=== PATIENT | female | born 1985 | race Two or more races ===

== ENCOUNTER 2023-12-29 16:31 | Emergency (ER) | payer MEDICAID, SELFPAY ==
--- NOTE | 2023-12-29 17:00 | PC.NURSE ---
no answer in lobby when called for vital signs
--- NOTE | 2023-12-29 17:29 | PC.NURSE ---
NA X1 @[id number]
--- NOTE | 2023-12-29 18:28 | PC.NURSE ---
no answer in lobby when called for vitals
== END 2023-12-29 18:28 | disposition left against medical advice (07) ==
LOC: SERX 18:39
PROVIDERS: Emergency Provider Emergency Medicine
DX: Z53.21 Procedure and treatment not carried out due to patient leaving prior to being seen by health care provider (principal)

== ENCOUNTER → 2024-04-17 | Outpatient (CLI) | payer BC, SELFPAY ==
[2024-04-17 15:23] LABS: Collection Type, Urine Clean Catch
[2024-04-17 16:54] LABS: Amphetamine/Methamp Scrn,U Negative (Negative); Barbiturate Screen,Urine Negative (Negative); Benzodiazepines Screen,Urine Negative (Negative); Benzoylecgonine Screen, Ur Negative (Negative); Fentanyl Screen,Urine Negative (Negative); Opiate Screen,Urine Negative (Negative); THC Screen,Urine Negative (Negative)
[2024-04-17 17:13] LABS: Bacteria,Urine Rare; Bilirubin,Urine Negative (Negative); Blood,Urine Negative (Negative); Clarity,Urine Clear (Clear/Hazy); Color,Urine Yellow (Lt Yel-Yel); Glucose, Urine Negative (Negative); Ketones,Urine Negative (Negative); Leukocyte Esterase,Urine Negative (Negative); Nitrite,Urine Negative (Negative); PH,Urine 6.5 (5.0-7.0); Protein,Urine Trace (Neg - Trace); RBC,Urine 24 /hpf (0-3); Specific Gravity,Urine 1.026 (1.001-1.035); Squamous Epithelial Cell,Urine 3 /hpf (0-5); Urobilinogen,Urine Negative mg/dL (0.0-1.0); WBC,Urine 1 /hpf (0-5)
[2024-04-18 09:36] LABS: BVAG Candida Negative (Negative); Bacterial Vaginosis Markers Negative (Negative); Candida glabrata Negative (Negative); Candida krusei PCR Negative (Negative); Trichomonas Negative (Negative)
== END | disposition home or self-care (01) ==
LOC: SLDO 14:54
PROVIDERS: Referring Provider Physician Assistant Medical; Visit Provider Physician Assistant Medical
DX: Z34.82 Encounter for supervision of other normal pregnancy, second trimester (principal)
CPT/HCPCS: 80307; 81001; 81514; 87086

== ENCOUNTER → 2024-04-25 | Outpatient (CLI) | payer BC, SELFPAY ==
[2024-04-25 10:37] LABS: Misc Send Out* See Sep Rpt; Quantiferon-TB* See Sep Rpt
[2024-04-25 10:57] LABS: Basophils % (Auto) 0 % (0-2.5); Eosinophils # (Auto) 0.1 Thou/mm3 (0.0-0.5); Eosinophils % (Auto) 1 % (0-10); Hematocrit 33.4 % (36.0-46.0); Hemoglobin 10.6 g/dL (12.0-16.0); Immature Granulocytes % (Auto) 1 % (0-0); Lymphocytes # (Auto) 1.7 Thou/mm3 (1.0-4.8); Lymphocytes % (Auto) 22 % (10-50); Mean Corpuscular HGB Conc 31.7 g/dl (31.0-37.0); Mean Corpuscular Hemoglobin 26.8 pg (25.0-35.0); Mean Corpuscular Volume 85 fL (80-100); Monocytes # (Auto) 0.4 Thou/mm3 (0.0-0.8); Monocytes % (Auto) 5 % (0-12); Neutrophils # (Auto) 5.5 Thou/mm3 (1.8-7.7); Neutrophils % (Auto) 71 % (37-80); Nucleated Red Blood Cell % 0 /100 WBC (0); Platelet Count 289 Thou/mm3 (140-440); Red Blood Count 3.95 Miln/mm3 (4.00-5.20); White Blood Count 7.7 Thou/mm3 (3.6-11.0)
[2024-04-25 11:22] LABS: Creatinine (Component) 0.4 mg/dL (0.6-1.3); Glucose 76 mg/dL (74-106); eGFR > 60 See Note
[2024-04-25 14:43] LABS: Glucose Estimated Average 94 mg/dL (80-131); Hemoglobin A1C 4.9 % Hgb (4.8-6.0)
[2024-04-25 15:50] LABS: Syphilis Nonreactive (Nonreactive)
[2024-04-29 07:18] LABS: HIV Ag/Ab, 4th Gen NON-REACTIVE
== END | disposition home or self-care (01) ==
LOC: COPL 10:04
PROVIDERS: PCP Pediatrics; Referring Provider Physician Assistant Medical; Visit Provider Physician Assistant Medical
DX: Z34.82 Encounter for supervision of other normal pregnancy, second trimester (principal)
CPT/HCPCS: 36415; 81220; 82565; 82947; 83036; 85025; 86480; 86780; 86850; 86900; 86901; 87389

== ENCOUNTER → 2024-05-24 | Outpatient (CLI) | payer BC, SELFPAY ==
[2024-05-24 16:38] LABS: Basophils % (Auto) 0 % (0-2.5); Eosinophils # (Auto) 0.1 Thou/mm3 (0.0-0.5); Eosinophils % (Auto) 1 % (0-10); Hematocrit 31.4 % (36.0-46.0); Immature Granulocytes % (Auto) 1 % (0-0); Immature Granulocytes Auto 0.11 Thou/mm3 (0.00-0.00); Lymphocytes # (Auto) 1.8 Thou/mm3 (1.0-4.8); Lymphocytes % (Auto) 21 % (10-50); Mean Corpuscular HGB Conc 31.8 g/dl (31.0-37.0); Mean Corpuscular Hemoglobin 27.8 pg (25.0-35.0); Mean Corpuscular Volume 87 fL (80-100); Monocytes # (Auto) 0.4 Thou/mm3 (0.0-0.8); Monocytes % (Auto) 5 % (0-12); Neutrophils # (Auto) 6.1 Thou/mm3 (1.8-7.7); Neutrophils % (Auto) 71 % (37-80); Nucleated Red Blood Cell % 0 /100 WBC (0); Platelet Count 255 Thou/mm3 (140-440); RDW Standard Deviation 47.3 fL (36.4-46.3); White Blood Count 8.6 Thou/mm3 (3.6-11.0)
[2024-05-24 16:57] LABS: Ferritin 10 ng/mL (7.3-270.7); Iron 61 mcg/dL (50-170); Total Iron Binding Capacity 453 mcg/dL (250-425)
[2024-05-24 17:08] LABS: Folate > 24.00 ng/mL (>5.38); Vitamin B12 405 pg/mL (211-911)
[2024-05-24 17:13] LABS: Glucose,1 Hour PP 50gm Dose 152 mg/dL (80-140)
[2024-05-29 17:48] LABS: Hemoglobinopathy Hematocrit 31.8 % (35.0-45.0); Hemoglobinopathy Hemoglobin 10.2 g/dL (11.7-15.5); Hemoglobinopathy Hemoglobin A2 2.7 % (2.0-3.2); Hemoglobinopathy MCV 87.4 fL (80.0-100.0); Hemoglobinopathy Red Blood Cnt 3.64 Million/uL (3.80-5.10)
[2024-05-30 07:25] LABS: Hemoglobinopathy Hemoglobin A 97.3 %; Hemoglobinopathy RDW 13.7 % (11.0-15.0)
== END | disposition home or self-care (01) ==
LOC: SLDO 15:43
PROVIDERS: Referring Provider Specialist; Visit Provider Specialist
DX: Z34.82 Encounter for supervision of other normal pregnancy, second trimester (principal); D50.9 Iron deficiency anemia, unspecified
CPT/HCPCS: 36415; 82607; 82728; 82746; 82950; 83020; 83540; 83550; 85014; 85018; 85025; 85041

== ENCOUNTER → 2024-06-14 | Outpatient (CLI) | payer BC, SELFPAY | END | disposition home or self-care (01) | PROVIDERS: PCP Pediatrics; Referring Provider Pediatrics; Visit Provider Pediatrics | DX: Z01.89 Encounter for other specified special examinations (principal) ==

== ENCOUNTER 2024-06-27 09:40 | Observation (INO) | payer BC, SELFPAY ==
[2024-06-27] VITALS (36 sets, daily range): BP systolic 121; BP diastolic 81; PULSE 75–249; RESP 20–98; TEMP 36.7; O2SAT 82–99; BMI 35.3
[2024-06-27] MEDS: TERBUTALINE SULF INJ 1 MG/ML VIAL 0.25 MG SC ×2 (10:42→11:35)
[2024-06-27 10:47] LABS: FFN Specimen Descripton Other; Fetal Fibronectin Negative (Negative)
[2024-06-27 10:49] LABS: Collection Type, Urine Clean Catch
[2024-06-27] MEDS: BETAMET ACET/BETAMET NA PH (Celestone) 6 MG/ML VIAL 12 MG IM (11:28)
[2024-06-27 11:37] LABS: Bacteria,Urine 2+; Bilirubin,Urine Negative (Negative); Blood,Urine 1+ (Negative); Clarity,Urine Clear (Clear/Hazy); Color,Urine Colorless (Lt Yel-Yel); Glucose, Urine Negative (Negative); Hyaline Casts,Urine < 1 /hpf (0-1); Ketones,Urine Negative (Negative); Leukocyte Esterase,Urine Negative (Negative); Nitrite,Urine Negative (Negative); Protein,Urine Negative (Neg - Trace); RBC,Urine 2 /hpf (0-3); Specific Gravity,Urine 1.004 (1.001-1.035); Squamous Epithelial Cell,Urine 1 /hpf (0-5); Urobilinogen,Urine Negative mg/dL (0.0-1.0); WBC,Urine 1 /hpf (0-5)
[2024-06-27] MEDS: cefTRIAXone 1,000 MG, LIDOCAINE 1% 20 ML 2.1 ML IM (12:19)
== END 2024-06-27 12:50 | disposition home or self-care (01) ==
PROVIDERS: Admitting Provider Specialist; Visit Provider Specialist
DX: O47.03 False labor before 37 completed weeks of gestation, third trimester (principal); Z3A.31 31 weeks gestation of pregnancy
CPT/HCPCS: 59025; 59899; 81001; 82731; 87086; 96372; J0696; J0702; J3105; J3490

== ENCOUNTER 2024-06-28 14:57 | Outpatient (CLI) | payer BC, SELFPAY ==
[2024-06-28 15:15] VITALS: BP 112/66; PULSE 86; RESP 17; RESP 98; TEMP 36.8
[2024-06-28] MEDS: BETAMET ACET/BETAMET NA PH (Celestone) 6 MG/ML VIAL 12 MG IM (15:56)
[2024-06-28 17:09] VITALS: BMI 33.6
== END 2024-06-28 16:15 | disposition home or self-care (01) ==
LOC: CNST 14:58 → S4SX 15:03
PROVIDERS: Referring Provider Obstetrics & Gynecology; Visit Provider Obstetrics & Gynecology
DX: Z34.90 Encounter for supervision of normal pregnancy, unspecified, unspecified trimester (principal); Z36.89 Encounter for other specified antenatal screening; Z3A.00 Weeks of gestation of pregnancy not specified
CPT/HCPCS: 59025; 96372; J0702

== ENCOUNTER 2024-07-18 09:12 | Observation (INO) | payer BC, SELFPAY ==
[2024-07-18] VITALS (23 sets, daily range): BP systolic 108; BP diastolic 71–77; PULSE 78–116; RESP 16–99; TEMP 36.4; O2SAT 96–99; BMI 33.7
[2024-07-18] MEDS: RINGERS LACTATED 1000 ML 1,000 ML 999 ML IV (09:45)
[2024-07-18 12:22] LABS: Collection Type, Urine Clean Catch
[2024-07-18] MEDS: TERBUTALINE SULF INJ 1 MG/ML VIAL 0.25 MG SC ×2 (12:45→13:10)
[2024-07-18 12:46] LABS: Bacteria,Urine Rare; Bilirubin,Urine Negative (Negative); Blood,Urine 1+ (Negative); Clarity,Urine Clear (Clear/Hazy); Color,Urine Lt-Yellow (Lt Yel-Yel); Culture Indicated,Urine Not Indicated; Glucose, Urine Negative (Negative); Ketones,Urine Negative (Negative); Leukocyte Esterase,Urine Negative (Negative); Nitrite,Urine Negative (Negative); PH,Urine 6.5 (5.0-7.0); Protein,Urine Negative (Neg - Trace); RBC,Urine 4 /hpf (0-3); Squamous Epithelial Cell,Urine 2 /hpf (0-5); Urobilinogen,Urine Negative mg/dL (0.0-1.0); WBC,Urine 1 /hpf (0-5)
[2024-07-18] MEDS: RINGERS LACTATED 1000 ML 1,000 ML 100 ML IV (12:49)
[2024-07-18 12:50] LABS: FFN Specimen Descripton Clr Colrless Aqueous; Fetal Fibronectin Negative (Negative)
== END 2024-07-18 14:05 | disposition home or self-care (01) ==
PROVIDERS: Obstetrics & Gynecology; Admitting Provider Obstetrics & Gynecology; Visit Provider Obstetrics & Gynecology
DX: O47.9 False labor, unspecified (principal); Z3A.00 Weeks of gestation of pregnancy not specified
CPT/HCPCS: 59025; 59899; 81001; 82731; 96372; J3105; J7120

== ENCOUNTER → 2024-07-18 | Outpatient (CLI) | payer BC, SELFPAY | END | disposition home or self-care (01) | LOC: SLDO 14:47 | PROVIDERS: Referring Provider Physician Assistant Medical; Visit Provider Physician Assistant Medical | DX: Z34.83 Encounter for supervision of other normal pregnancy, third trimester (principal) | CPT/HCPCS: 87086 ==

== ENCOUNTER → 2024-08-01 | Outpatient (CLI) | payer BC, SELFPAY ==
[2024-08-02 16:35] LABS: BVAG Candida Negative (Negative); Bacterial Vaginosis Markers Negative (Negative); Candida glabrata Negative (Negative); Candida krusei PCR Negative (Negative); Trichomonas Negative (Negative)
== END | disposition home or self-care (01) ==
LOC: SLDO 16:39
PROVIDERS: Referring Provider Specialist; Visit Provider Specialist
DX: Z34.83 Encounter for supervision of other normal pregnancy, third trimester (principal)
CPT/HCPCS: 81514

== ENCOUNTER → 2024-08-12 | Outpatient (CLI) | payer BC, SELFPAY ==
--- NOTE | 2024-08-12 16:31 | XR_ITS ---
Examination: Abdomen sonogram, Limited Date and time of exam: August 12, 2024, 1650 hours INDICATIONS: Epigastric pain beginning 3 days ago Technique: Real-time gore scale transabdominal sonographic images of the upper abdomen obtained. Findings: Normal gallbladder. Normal common bile duct 0.4 cm Pancreatic head 3.0 cm The liver is not enlarged, smooth contour Normal hepatopedal portal venous O Patent IVC IMPRESSION: Negative examination.
== END | disposition home or self-care (01) ==
PROVIDERS: PCP Pediatrics; Referring Provider Specialist; Visit Provider Specialist
DX: R10.10 Upper abdominal pain, unspecified (principal)
CPT/HCPCS: 76705

== ENCOUNTER → 2024-08-13 | Outpatient (CLI) | payer BC, SELFPAY ==
[2024-08-13 12:50] LABS: Basophils # (Auto) 0.0 Thou/mm3 (0.0-0.2); Basophils % (Auto) 0 % (0-2.5); Eosinophils # (Auto) 0.3 Thou/mm3 (0.0-0.5); Eosinophils % (Auto) 4 % (0-10); Hematocrit 31.1 % (36.0-46.0); Hemoglobin 10.7 g/dL (12.0-16.0); Immature Granulocytes Auto 0.06 Thou/mm3 (0.00-0.00); Lymphocytes # (Auto) 1.6 Thou/mm3 (1.0-4.8); Lymphocytes % (Auto) 22 % (10-50); Mean Corpuscular HGB Conc 34.4 g/dl (31.0-37.0); Mean Corpuscular Hemoglobin 27.6 pg (25.0-35.0); Mean Corpuscular Volume 80 fL (80-100); Monocytes # (Auto) 0.4 Thou/mm3 (0.0-0.8); Monocytes % (Auto) 6 % (0-12); Neutrophils # (Auto) 4.9 Thou/mm3 (1.8-7.7); Neutrophils % (Auto) 67 % (37-80); Nucleated Red Blood Cell # 0.00 Thou/mm3 (0.00-0.00); Nucleated Red Blood Cell % 0 /100 WBC (0); Platelet Count 232 Thou/mm3 (140-440); RDW Standard Deviation 37.7 fL (36.4-46.3); Red Blood Count 3.88 Miln/mm3 (4.00-5.20); White Blood Count 7.2 Thou/mm3 (3.6-11.0)
[2024-08-13 13:21] LABS: Alanine Aminotransferase 9 U/L (10-49); Albumin, Serum 3.6 gm/dL (3.5-5.0); Albumin/Globulin Ratio 1.4 (1.2-2.2); Alkaline Phosphatase 149 U/L (46-116); Amylase 44 U/L (30-118); Anion Gap 8 (7-16); Aspartate Amino Transferase 15 U/L (0-34); BUN/Creatinine Ratio 13 Ratio (12-20); Bilirubin,Total 0.4 mg/dL (0.3-1.2); Blood Urea Nitrogen 5 mg/dL (9-23); Calcium 9.0 mg/dL (8.3-10.6); Calcium (Corrected) 9.3 mg/dL (8.5-10.1); Carbon Dioxide 23.3 mMol/L (20.0-31.0); Chloride 110 mMol/L (98-107); Creatinine (Component) 0.4 mg/dL (0.6-1.3); Globulin 2.5 gm/dL (2.3-3.5); Glucose 115 mg/dL (74-106); Lipase 30 U/L (12-53); Osmolality,Calculated 279 (275-295); Potassium 3.0 mMol/L (3.4-5.1); Sodium 141 mMol/L (136-145); Total Protein 6.1 gm/dL (5.7-8.2); Uric Acid 3.6 mg/dL (3.1-7.8); eGFR > 60 See Note
[2024-08-13 14:22] LABS: Creatinine,Random Urine 219 mg/dL (30-125); Protein Total, Random Urine 52 mg/dL (1-14)
[2024-08-13 14:29] LABS: Fibrinogen 494 mg/dL (175-375); INR 0.9 (0.9-1.3); Partial Thromboplastin Time 25.8 Seconds (22.0-36.0); Prothrombin Time 9.9 Seconds (9.0-12.2)
== END | disposition home or self-care (01) ==
LOC: COPL 12:01
PROVIDERS: PCP Pediatrics; Referring Provider Physician Assistant Medical; Visit Provider Physician Assistant Medical
DX: R10.10 Upper abdominal pain, unspecified (principal); Z34.83 Encounter for supervision of other normal pregnancy, third trimester
CPT/HCPCS: 36415; 80053; 82150; 82570; 83013; 83014; 83690; 84156; 84550; 85025; 85384; 85610; 85730

== ENCOUNTER → 2024-08-15 | Outpatient (CLI) | payer BC, SELFPAY ==
[2024-08-15 10:36] LABS: Creatinine, Urine Volume 825 mL/24hr (600-1800); Protein Total, Urine Volume 825 mL/24hr (600-1800)
[2024-08-15 10:42] LABS: Urea Breath Test Positive (Negative)
[2024-08-15 10:59] LABS: Creatinine, 24 Hour Urine 1.1 gm/24hr (0.6-1.8); Creatinine,Urine 128 mg/dL (30-125); Protein Total, 24 hr Urine 231 mg/24hr (<149); Protein Total, Urine 28 mg/dL (1-14)
== END | disposition home or self-care (01) ==
LOC: COPL 09:16
PROVIDERS: PCP Family Medicine; Referring Provider Physician Assistant Medical; Visit Provider Physician Assistant Medical
DX: Z34.83 Encounter for supervision of other normal pregnancy, third trimester (principal); R10.10 Upper abdominal pain, unspecified
CPT/HCPCS: 82570; 83013; 83014; 84156

== ENCOUNTER 2024-08-21 07:55 | Inpatient (IN) | payer BC, SELFPAY ==
[2024-08-21] VITALS (28 sets, daily range): BP systolic 114–128; BP diastolic 72–85; PULSE 78–100; RESP 18; TEMP 36.6–37.1; O2SAT 95–98; BMI 34.2
--- NOTE | 2024-08-21 08:56 | ESHP_ITS ---
RE: GABBY HAN : 1985 DATE OF ADMISSION: 08/21/2024 HISTORY OF PRESENT ILLNESS: This is a 39-year-old 6, para 3-0-2-3 with due date of 08/24/2024 with intrauterine at 39 weeks and 4 days who presents for induction of labor by recommendation of maternal medicine. The patient's care was complicated by a finding of bilateral cleft lip and palate on ultrasound. Ultrasounds have shown adequate interval growth and the patient has been counseled prenatally with regards to the non-urgent plastic surgery followup post delivery. In addition, the patient has undergone counseling in anticipation of the baby's unique feeding needs neonatally. The most recent ultrasound on 08/07/2024 showed estimated weight 3027 g with overall growth at the 38th percentile. The patient reports occasional contractions. She denies any leaking. She reports normal movement. She did experience threatened labor on 06/27/2024. At that time, she was tocolyzed and received 2 doses of betamethasone on 06/27/2024 and 06/28/2024. Her was also complicated by H. pylori gastroenteritis and she has been on an H2 eric, but she has not yet received any antibiotics due to the diagnosis only recently 08/15/2024. Her 3-hour GTT was within normal limits. The [facility] ultrasound on 06/05/2024 suggested that the baby has a possible high mid muscular ventricular septal defect. Another issue in , the patient was treated for iron deficiency anemia with oral iron. She had a recent 24-hour urine collection on 08/15/2024 showing 231 mg of protein over 24 hours. MEDICATIONS: 1. multivitamin 1 p.o. daily. 2. Ferrous sulfate 325 mg 1 p.o. b.i.d. 3. Aspirin 81 mg 1 p.o. daily. PAST MEDICAL HISTORY: Iron deficiency anemia, seasonal allergies, H. pylori, and gastritis. OBSTETRIC HISTORY: 2007, 40 week, normal vaginal delivery 7 pounds 16 ounce male, no complications. 04/2015, 40 week, normal vaginal delivery 7 pounds 8 ounces male, no complications. 2016, 40 week, normal vaginal delivery 7 pounds 11 ounces female, no complications. 2006, 20 week demise. 2014, spontaneous AB at 6 weeks' gestation with D and C. PAST SURGICAL HISTORY: D and C in 2006 and 2014. FAMILY HISTORY: Denies. REVIEW OF SYSTEMS: She denies any chest pain, palpitations, cough, fever, shortness of breath or lower extremity pain. PHYSICAL EXAMINATION: VITAL SIGNS: Blood pressure 121/74, heart rate 88, respirations 18, temperature 98.6. HEENT: Oropharynx and sclerae are clear. LUNGS: Clear to auscultation bilaterally. HEART: Regular rate and rhythm. ABDOMEN: Gravid. Term size consistent with estimated weight 3500 g. PELVIC: See RN notes. EXTREMITIES: Nontender. SKIN: No gross rashes or lesions. NEUROLOGIC: No focal deficit. ASSESSMENT AND PLAN: Intrauterine at 39 weeks and 4 days. Fetus with bilateral cleft lip and palate. Induction of labor. Anticipate spontaneous vaginal delivery. Informed consent was obtained. The patient was made aware of the risks, complications, alternatives, and benefits of the proposed procedure and she agrees. She is aware of the risk of operative vaginal delivery and delivery and agrees with these modes of delivery if indicated. DT: 08:25:02 TT: 08:55:00 Ref: [id number] - TID: [id number] MTDD
[2024-08-21 09:38] LABS: Basophils # (Auto) 0.0 Thou/mm3 (0.0-0.2); Basophils % (Auto) 0 % (0-2.5); Eosinophils # (Auto) 0.9 Thou/mm3 (0.0-0.5); Eosinophils % (Auto) 10 % (0-10); Hematocrit 34.3 % (36.0-46.0); Hemoglobin 11.0 g/dL (12.0-16.0); Immature Granulocytes Auto 0.08 Thou/mm3 (0.00-0.00); Lymphocytes # (Auto) 2.1 Thou/mm3 (1.0-4.8); Lymphocytes % (Auto) 26 % (10-50); Mean Corpuscular HGB Conc 32.1 g/dl (31.0-37.0); Mean Corpuscular Hemoglobin 26.7 pg (25.0-35.0); Mean Corpuscular Volume 83 fL (80-100); Monocytes # (Auto) 0.4 Thou/mm3 (0.0-0.8); Monocytes % (Auto) 4 % (0-12); Neutrophils # (Auto) 4.9 Thou/mm3 (1.8-7.7); Neutrophils % (Auto) 59 % (37-80); Nucleated Red Blood Cell # 0.00 Thou/mm3 (0.00-0.00); Nucleated Red Blood Cell % 0 /100 WBC (0); Platelet Count 267 Thou/mm3 (140-440); RDW Standard Deviation 40.0 fL (36.4-46.3); Red Blood Count 4.12 Miln/mm3 (4.00-5.20); White Blood Count 8.3 Thou/mm3 (3.6-11.0)
[2024-08-21] MEDS: RINGERS LACTATED 1000 ML 1,000 ML 100 ML IV (09:55)
[2024-08-21 10:05] LABS: Amphetamine/Metham Scrn,Ur OB Negative (Negative); Benzoylecgonine Screen, Ur OB Negative (Negative); Opiate Screen,Urine OB Negative (Negative); THC Screen,Urine OB Negative (Negative)
[2024-08-21 10:12] LABS: Syphilis Nonreactive (Nonreactive)
[2024-08-22] VITALS (47 sets, daily range): BP systolic 107–135; BP diastolic 69–90; PULSE 71–209; RESP 16–18; TEMP 36.6–37.2; O2SAT 84–99
[2024-08-22] MEDS: fentaNYL CIT INJ 50 mCg/ML AMP 2ML 100 MCG IVP (01:51)
[2024-08-22] MEDS: MINERAL OIL 30 ML UDC TOP (02:43)
[2024-08-22] MEDS: OXYTOCIN in NS 20 units 20 UNIT/1,000 ML BAG 125 UNIT IV (02:47)
[2024-08-22] MEDS: LIDOCAINE HCL 1% 20 ML VIAL INFL (02:48)
[2024-08-22] MEDS: BENZO/LANO/ALOE (Dermoplast) 60 GM CAN 1 SPRAY TOP (02:50)
--- NOTE | 2024-08-22 03:07 | PD.LDDS ---
DS: Providers Provider Date of admission: 08/21/24 07:55 Primary care physician: Arnie Asif MD Admitting Provider: Dat Leach MD Attending Provider on Admission: Dat Leach MD Attending Provider on DC: Dat Leach MD Discharging Provider: Dat Leach MD DS: Diagnosis Discharge Diagnosis (1) Normal spontaneous vaginal delivery: Status: Acute Problem List Completed Was Problem List Reviewed/Reconciled?: Yes Summary/Hosp Course Peripartum Data Delivery Method: Normal Vaginal Delivery Episiotomy Description: None Laceration Description: see Delivery Summary complications: none Time Spent with Patient Time attestation: Total time spent providing and/or coordinating discharge services: Exam Vital Signs Temp Pulse Resp BP Pulse Ox 97.8 F 90 18 124/80 97 08/21/24 20:00 08/22/24 03:04 08/21/24 20:00 08/22/24 03:04 08/22/24 03:03 Discharge Plan Plan Patient Disposition: HOME (Self Care) Patient condition on transfer: Stable Prescriptions/Referrals Prescriptions/Med Rec: New ibuprofen 600 mg tablet 600 mg PO Q6H PRN (Reason: pain) Qty: 30 0RF No Action ferrous sulfate 325 mg (65 mg iron) tablet 325 mg PO QDAY Patient Comments: TAKE 1 TABLET BY MOUTH EVERY DAY loratadine 10 mg tablet 10 mg PO QDAY Patient Comments: TAKE 1 TABLET BY MOUTH EVERY DAY aspirin 81 mg tablet,delayed release (DR/EC) 81 mg PO QDAY Patient Comments: TAKE 1 TABLET BY MOUTH EVERY DAY Classic 28 mg iron- 800 mcg tablet Patient Comments: TAKE 1 TABLET BY MOUTH EVERY DAY FOR 90 DAYS potassium chloride 20 mEq tablet extended release PO Patient Comments: Take 1 tablet by mouth twice a day Referrals: Arnie Asif MD [Primary Care Provider] - Patient/Caregiver Discharge Instructions Discharge Activity: activity as tolerated Other Discharge Activity Instructions:: Follow up office 6 weeks Print Language: [place] Stand Alone Forms: Sophie Award Info., Patient Portal Info Letter Planned Discharge Date 08/23/24
[2024-08-22] MEDS: IBUPROFEN TAB 400 MG TABLET 800 MG PO ×3 (04:00→22:20)
[2024-08-22] MEDS: ACETAMINOPHEN 325 MG TABLET 650 MG PO ×2 (05:28→15:02)
[2024-08-22] MEDS: HYDROcodone/APAP 5/325 TABLET 1 TAB PO ×2 (07:33→20:10)
[2024-08-22 09:14] LABS: Basophils # (Auto) 0.0 Thou/mm3 (0.0-0.2); Basophils % (Auto) 0 % (0-2.5); Eosinophils # (Auto) 0.6 Thou/mm3 (0.0-0.5); Eosinophils % (Auto) 4 % (0-10); Hematocrit 31.0 % (36.0-46.0); Hemoglobin 10.5 g/dL (12.0-16.0); Immature Granulocytes Auto 0.07 Thou/mm3 (0.00-0.00); Lymphocytes # (Auto) 2.1 Thou/mm3 (1.0-4.8); Lymphocytes % (Auto) 14 % (10-50); Mean Corpuscular HGB Conc 33.9 g/dl (31.0-37.0); Mean Corpuscular Hemoglobin 27.4 pg (25.0-35.0); Mean Corpuscular Volume 81 fL (80-100); Monocytes # (Auto) 0.7 Thou/mm3 (0.0-0.8); Monocytes % (Auto) 5 % (0-12); Neutrophils # (Auto) 11.1 Thou/mm3 (1.8-7.7); Neutrophils % (Auto) 76 % (37-80); Nucleated Red Blood Cell # 0.00 Thou/mm3 (0.00-0.00); Nucleated Red Blood Cell % 0 /100 WBC (0); Platelet Count 237 Thou/mm3 (140-440); RDW Standard Deviation 38.8 fL (36.4-46.3); Red Blood Count 3.83 Miln/mm3 (4.00-5.20); White Blood Count 14.5 Thou/mm3 (3.6-11.0)
[2024-08-23 00:22] VITALS: BP 127/86; PULSE 80; RESP 18; TEMP 36.7; O2SAT 96
[2024-08-23] MEDS: ACETAMINOPHEN 325 MG TABLET 650 MG PO (05:22)
[2024-08-23 07:25] VITALS: BP 118/76; PULSE 67; RESP 16; TEMP 36.7; O2SAT 97
--- NOTE | 2024-08-23 08:46 | ESDS_ITS ---
DS: Providers Provider Date of admission: 08/21/24 07:55 Primary care physician: Arnie Asif MD Admitting Provider: Dat Leach MD Attending Provider on Admission: Dat Leach MD Consults: 08/22/24 04:18 Referral Routine Comment: Bilateral cleft lip and palate Attending Provider on DC: Shannon Alberts MD Discharging Provider: Shannon Alberts MD Anticipated date of discharge: 08/23/24 DS: Diagnosis Discharge Diagnosis (1) Normal spontaneous vaginal delivery: Status: Acute Assessment & Plan: PPD #1 doing well baby has cleft lip and patient and FOB are learning to manage and baby is discharged Problem List Completed Was Problem List Reviewed/Reconciled?: Yes Summary/Hosp Course Peripartum Data Delivery Method: Normal Vaginal Delivery Episiotomy Description: None complications: none 1: Disposition of : other (baby with cleft lip /palate ) Status at Discharge Cognitive/behavioral status at discharge: alertx 3 doing well , ambulating and lochia normal, afebrile VSS no fever , no complaints Functional status at discharge: independent ambulation Overall status at discharge: patient is back to baseline Time Spent with Patient Time attestation: Total time spent providing and/or coordinating discharge services: Time spent: Less than 30 minutes Exam Vital Signs Temp Pulse Resp BP Pulse Ox O2 Del Method 98.1 F 67 16 118/76 97 Room Air 08/23/24 07:25 08/23/24 07:25 08/23/24 07:25 08/23/24 07:25 08/23/24 07:25 08/23/24 07:25 Constitutional Constitutional: no acute distress Routine Respiratory Exam Respiratory: Present chest non-tender, lungs clear, normal breath sounds and no resp distress Routine Cardiovascular Exam Cardiovascular: Present RRR Routine Abdominal Exam Abdominal: Present soft and normoactive bowel sounds Comments: uterus firm and non tender and Routine Extremities Exam Extremities: Present full ROM and pulses intact Comments: no calf tenderness Routine Skin Exam Skin: Present intact and normal turgor Routine Neurological Exam Neurological: Present alert, oriented X3 and normal reflexes Routine Psychiatric Exam Psychiatric: Present normal affect, normal thought process and cooperative Comments: a little anxious but coping well / has family support Discharge Plan Plan Patient Disposition: HOME (Self Care) Patient condition on transfer: Stable Prescriptions/Referrals Prescriptions/Med Rec: New ibuprofen 600 mg tablet 600 mg PO Q6H PRN (Reason: pain) Qty: 30 0RF No Action ferrous sulfate 325 mg (65 mg iron) tablet 325 mg PO QDAY Patient Comments: TAKE 1 TABLET BY MOUTH EVERY DAY loratadine 10 mg tablet 10 mg PO QDAY Patient Comments: TAKE 1 TABLET BY MOUTH EVERY DAY aspirin 81 mg tablet,delayed release (DR/EC) 81 mg PO QDAY Patient Comments: TAKE 1 TABLET BY MOUTH EVERY DAY Classic 28 mg iron- 800 mcg tablet Patient Comments: TAKE 1 TABLET BY MOUTH EVERY DAY FOR 90 DAYS potassium chloride 20 mEq tablet extended release PO Patient Comments: Take 1 tablet by mouth twice a day Referrals: Arnie Asif MD [Primary Care Provider] - Patient/Caregiver Discharge Instructions Discharge Activity: activity as tolerated Other Discharge Activity Instructions:: Follow up office 6 weeks Print Language: [place] Stand Alone Forms: Sophie Award Info., Patient Portal Info Letter Discharge Order Discharge Orders: Discharge (Routine); Ordered 08/23/24 Ordered By: Shannon Alberts Planned Discharge Date 08/23/24
--- NOTE | 2024-09-03 07:41 | PD.LDDELS ---
Data (Penny) Data Hx Section: No : 6 Term: 3 : 0 Livin Abortions: Spontaneous & Theraputic: 0 Delivery Data (Penny) Labor Data Initiation of labor: Induction Induction/Augmentation Agent: Cervidil ROM date: 08/22/24 ROM time: 02:42 Amniotic membrane rupture type: Artificial Amniotic fluid description: Clear Delivery Data EDC: 08/24/24 EDC calculated by:: LMP/early US confirmation Onset of labor date: 08/21/24 Onset of labor time: 23:10 Complete dilation date: 08/22/24 Complete dilation time: 02:27 Imler delivery date: 08/22/24 Imler delivery time: 02:44 Gestational age (weeks): 39 Gestational age (days): 5 Placenta delivery date: 08/22/24 Placenta delivery time: 02:47 Stage 1 total time: Labor - Stage 1 Duration 3 hours and 17 minutes Delivered by: Dat Leach Delivery nurse: LASHONDA [place] nurse: Riya [employer]asive [employer] Cutter Operator at delivery: Yes Support person(s) at delivery: FOB AT DELIVERY Delivery Method Delivery method: Normal Vaginal Delivery Presentation: Vertex position: OA Anesthesia Type Anesthesia Type: None Placenta Placenta delivery description: Spontaneous Cord blood sent to lab: Yes cord blood collection: Cord Blood Type Episiotomy Episiotomy description: None EBL Estimated blood loss (ml): 150 Umbilical Cord cord description: 3 Vessels Data (Penny) Imler Data order: 1 's gender: Female Identification band number: [id number] weight (gms): 7 lb 6.873 oz Weight (pounds): 7 lbs and 6.9 ozs Imler length: 19.75 in 1 minute: 9 5 minutes: 9 10 minutes: 9
== END 2024-08-23 11:19 | disposition home or self-care (01) | DRG 807 ==
LOC: S4SX 08-22 03:02 → S4NX 08-22 04:57
PROVIDERS: Admitting Provider Specialist; PCP Pediatrics; Visit Provider Specialist
DX: O80 Encounter for full-term uncomplicated delivery (principal); Z37.0 Single live birth; Z3A.39 39 weeks gestation of pregnancy
CPT/HCPCS: 36415; 59409; 80307; 85025; 86780; 86850; 86900; 86901; 94762; J2590; J3010; J3490; J7120; A9270

== ENCOUNTER → 2024-10-02 | Outpatient (CLI) | payer BC, SELFPAY ==
[2024-10-03 09:45] LABS: BVAG Candida Negative (Negative); Bacterial Vaginosis Markers Positive (Negative); Candida glabrata Negative (Negative); Candida krusei PCR Negative (Negative); Trichomonas Negative (Negative)
== END | disposition home or self-care (01) ==
LOC: SLDO 15:56
PROVIDERS: Referring Provider Physician Assistant Medical; Visit Provider Physician Assistant Medical
DX: B37.89 Other sites of candidiasis (principal); N76.0 Acute vaginitis; A59.01 Trichomonal vulvovaginitis
CPT/HCPCS: 81514